=== PATIENT | female | born 1935 | race Two or more races ===

== ENCOUNTER 2022-05-16 03:19 | Emergency (ER) | payer MEDICARE, BC ==
[~2022-05-16] VITALS: Ht 157.5 cm; Wt 66.7 kg
--- NOTE | 2022-05-16 03:25 | NUR ---
BIBRA99 FOR TRACH DISLODGEMENT X20 MIN TESTING LEAD. ACCOMPANIED BY DAUGHTER. PATIENT PLACED IN BED COMFORTABLY, VITALS CHECKED.
--- NOTE | 2022-05-16 03:27 | NUR ---
RT & MD AT BEDSIDE
--- NOTE | 2022-05-16 03:27 | NUR ---
SUCTIONED SECRETIONS BY RT. TRACH CARE PERFORMED.
--- NOTE | 2022-05-16 03:50 | NUR ---
RT NOTE Pt rec'd trached Shiley 4 on Tmask 5LPM. Pt awake and alert. Trach is patent and secured. Trach care done and minimal bleeding noted. Pt sx'd for thick mod amt of thick yellow secretions. Ambu bag and emergency spare trach at bedside. Addendum: 05/16/22 at 0353 by YULIET ARROYO RT Amended: Links added.
--- NOTE | 2022-05-16 03:58 | NUR ---
XR AT BEDSIDE
--- NOTE | 2022-05-16 05:04 | NUR ---
[facility] CALLED FOR BLS GOING BACK TO [facility] PER COTY ETA 75 MIN
--- NOTE | 2022-05-16 06:46 | NUR ---
Patient discharged to home in stable condition accompanied by daughter via medical transportation. Written and verbal after care instructions given. Daughter verbalizes understanding of instruction.
[2022-05-16 06:50] VITALS: BP 132/94
== END 2022-05-16 06:51 | disposition home or self-care (01) ==
LOC: ER 03:28
DX: J95.09 Other tracheostomy complication (principal); Z98.890 Other specified postprocedural states
CPT/HCPCS: 31720; 71045-TC

== ENCOUNTER 2022-05-21 05:07 | Inpatient (IN) | payer MEDICARE, MEDICAID ==
[2022-05-21] VITALS (11 sets, daily range): BP systolic 103–150; BP diastolic 61–90
[~2022-05-21] VITALS: Ht 165.1 cm; Wt 64.4 kg
--- NOTE | 2022-05-21 05:20 | NUR ---
BIBRA99 FRM HOME FOR "ACCIDENTAL DISLODGEMENT OF TRACH". DAUGHTER AT BEDSIDE
--- NOTE | 2022-05-21 05:32 | NUR ---
RT AT PT'S BEDSIDE
--- NOTE | 2022-05-21 05:40 | NUR ---
RT ATTEMPTED TO INSERT TRACH IN STOMA; TRACH STOMA ALREADY CLOSED. PT SATTING 90% ON TRACH COLLAR. PT CONNECTED TO POX & MONITOR. SAFETY MEASURES IN PLACE.
--- NOTE | 2022-05-21 06:00 | NUR ---
RT NOTE Pt rec'd on NRB mask 15LPM, pt awake and alert. Trach decannulated at home and patient rushed to Emergency department per fire department. Fire department explained trach has been decannulated for 30 mins before arriving to Emergency department. Melissa snow sz 4 to be placed on pt per MD orders. Melissa snow sz 4 unable to pass through due to stoma closing. pt placed back on NRB mask 15LPM and able to tolerate NRB mask @ 15LPM. MD aware. Addendum: 05/21/22 at 0617 by YULIET ARROYO RT Amended: Links added.
--- NOTE | 2022-05-21 06:14 | NUR ---
DR PAO KIRBY AT PT'S BEDSIDE WITH FAMILY
--- NOTE | 2022-05-21 06:32 | NUR ---
SPOKE WITH [facility] FROM [facility]. HOSPITAL IS AT [facility]. HOWEVER, SHE IS GOING TO PUT PT ON WAIT LIST.
--- NOTE | 2022-05-21 06:43 | NUR ---
PREDATOR CONTROL TRAPPER AT PT'S BEDSIDE
--- NOTE | 2022-05-21 06:45 | NUR ---
COVID ANTIGEN COLLECTED SENT TO LAB
--- NOTE | 2022-05-21 06:56 | NUR ---
IV STARTED ON L WRIST 20G. BLOOD COLLECTED AND SENT TO LAB
--- NOTE | 2022-05-21 07:01 | NUR ---
TITRATED O2 TO 4L NC SATURATION 99%
[2022-05-21 07:10] LABS: BASOPHILS % (AUTO) 0.5 % (0.0-2.0); EOSINOPHILS % (AUTO) 2.8 % (0.0-6.0); HEMATOCRIT 35 % (33-45); HEMOGLOBIN 11.4 g/dL (11.5-14.8); LYMPHOCYTES # (AUTO) 1.4 K/uL (0.8-4.8); LYMPHOCYTES % (AUTO) 25.7 % (20.0-44.0); MEAN CORPUSCULAR HGB CONC 33 g/dl (31.0-36.0); MEAN CORPUSCULAR VOLUME 82 fL (82-100); MONOCYTES # (AUTO) 0.4 K/uL (0.1-1.30); MONOCYTES % (AUTO) 6.4 % (2.0-12.0); NEUTROPHILS # (AUTO) 3.6 K/uL (1.8-8.9); NEUTROPHILS % (AUTO) 64.6 % (43.0-81.0); PLATELET COUNT (AUTO) 193 K/uL (150-450); RED BLOOD CELL COUNT(AUTO) 4.27 MIL/uL (4.0-5.2); WHITE BLOOD COUNT (AUTO) 5.6 K/uL (4.3-11.0)
[2022-05-21 07:17] LABS: CALCIUM, SERUM 9.2 mg/dL (8.5-10.1); CARBON DIOXIDE 33 mmol/L (21-32); CHLORIDE 102 mmol/L (98-107); CREATININE 0.5 mg/dL (0.6-1.3); GLUCOSE 112 mg/dL (74-106); POTASSIUM 3.8 mmol/L (3.5-5.1); SODIUM SERUM 142 mmol/L (136-145); UREA NITROGEN, BLOOD 16 mg/dL (7-18)
--- NOTE | 2022-05-21 07:39 | NUR ---
Patient AOx4 able to express her concerns. Patient stable, reviewed plan of care, pt verbalized agreement. Will continue to monitor throughout shift and provide care as needed.
--- NOTE | 2022-05-21 08:00 | NUR ---
CALLED [phone] DR. SOLIS UNABLE TO LEAVE A VM
--- NOTE | 2022-05-21 08:58 | NUR ---
CALLED [phone] [facility]UNG FOR DR. SOLIS INSTRUCTED TO CALL HIS OFFICE AFTER 0900
--- NOTE | 2022-05-21 09:04 | NUR ---
CALLED [phone] DR. SOLIS GROUP HOME COUNSELOR. JAYJAY WILL TAKE FOR PEER TO PEER.
--- NOTE | 2022-05-21 09:31 | NUR ---
DR. SOLIS [phone] [place].
--- NOTE | 2022-05-21 09:37 | NUR ---
[facility] CALLED FIRMWARE MANAGER PAGED.
[2022-05-21] MEDS ORDERED: ONDANSETRON HCL/PF 4 MG/2 ML VIAL IVP PRN (10:00)
[2022-05-21] MEDS ORDERED: ALBUTEROL FS 2.5 MG/0.5 ML VIAL.NEB NEB PRN (10:00)
[2022-05-21] MEDS ORDERED: ACETAMINOPHEN 325 MG TABLET PO PRN (10:00)
[2022-05-21] MEDS ORDERED: MORPHINE SULFATE INJ 2 MG/ML DISP.SYRIN IV PRN (10:00)
--- NOTE | 2022-05-21 10:12 | NUR ---
CALLED [facility]: [phone] PER ANIL WILL CHECK WITH HOTEL OR MOTEL RECEPTIONIST DR. SOLIS AND CALL US BACK.
[2022-05-21 10:37] LABS: ABG BASE EXCESS 4.8 mmol/L; ABG PCO2 65.2 mmHg (35.0-45.0); ABG PH 7.318 (7.350-7.450); ABG PO2 161.4 mmHg (75.0-100.0); COHb 0.3 % (0.5-1.5); MetHb 0.4 % (0.0-1.5); O2Hb 98.1 % (94.0-97.0); SITE, ABG Right Radial; VENT MODE, BG 4L NC
[2022-05-21] MEDS ORDERED: ALBUTEROL FS 2.5 MG/0.5 ML VIAL.NEB NEB SCH (11:30)
[2022-05-21] MEDS ORDERED: IPRATROPIUM/ALBUTEROL INHALER IH SCH (12:00)
--- NOTE | 2022-05-21 13:03 | NUR ---
GOT BED 257 ADMITTING INFORMED.
--- NOTE | 2022-05-21 13:07 | NUR ---
Called [facility], states they have no nurse to take patient at the moment.
--- NOTE | 2022-05-21 13:14 | NUR ---
Report give to Katya TRAYLOR, patient cleared to go to Room 257.
--- NOTE | 2022-05-21 13:40 | NUR ---
Patient made aware of floor transfer, son in law at bedside, patient and son verbalized agreemnt.
--- NOTE | 2022-05-21 13:50 | NUR ---
ICU/RN PT ADMITED FROM ER.FROM HOME.PT HAD TRACHEOSTOMY.THIS MORNING TRACHEOSTOMY ACCIDENTLY DISLODGE.TRACHEOSTOMY SIDE CLOSE WITH DRESSING.SAT O2-96% ON 1L N/C .V/S STABLE,AFEBRILE.NO PAIN REPORTED AT THIS TIME.PT IS AWAKE ,ALERT.SKIN INTACT.PT HAS G-TUBE CLAMPED .PT EATS AND DRINK. LABS REVIEW.PT USE BEDPAN .AMBULATE AT HOME WITH WALKER. WAITING TO BE TRANSFER TO [facility]. NO BED AVAILABLE.FAMILY AT BED SIDE.ALL BELONGINGS SEND HOME.
[2022-05-21 14:53] LABS: ABG BASE EXCESS 5.8 mmol/L; ABG OXYGEN SATURATION 95.2 % (92.0-98.5); ABG PCO2 55.4 mmHg (35.0-45.0); ABG PH 7.382 (7.350-7.450); ABG PO2 77.4 mmHg (75.0-100.0); AaDO2 27.8 mmHg; COHb 0.3 % (0.5-1.5); MetHb 0.2 % (0.0-1.5); O2Hb 94.7 % (94.0-97.0); SITE, ABG Right Radial; VENT MODE, BG 1L NC
[2022-05-21] MEDS: methylPREDNISolone SOD SUCC 125 MG/2ML VIAL IV SCH (16:41)
--- NOTE | 2022-05-21 19:19 | NUR ---
RN NOTES PT LOOKS COMFORTABLE, ALL DUE MEDICATIONS GIVEN. VITAL SIGNS STABLE. REPORT GIVEN TO PRINCESS TRAYLOR FOR CONTINUATION OF CARE.
[2022-05-21] MEDS: IPRATROPIUM NEB FS 0.5 MG/2.5 ML AMPUL.NEB NEB SCH (20:12)
[2022-05-21] MEDS: HEPARIN SODIUM, PORCINE 5000 UNITS/1 ML VIAL SQ SCH (21:47)
--- NOTE | 2022-05-21 22:13 | NUR ---
MANAGER LIFE INSURANCE OPENING NOTE PT RECEIVED IN BED, AWAKE, SPEAKS FARSI WITH DAUGHTER AT BEDSIDE. PER DAUGHTER REPORT, PT IS CONFUSED TO WHERE SHE IS AT BUT OTHERWISE A/0 X3, CALM, COOPERATIVE. PT ON 1L NC WITH O2SAT OF 95%; NO S/S OF RESP DISTRESS; NO SOB OR COUGH, NON-LABORED AND EQUAL BREATHING; TRACH SITE NOTED TO BE COVERED WITH GAUZE, NO DRAINAGE NOTED. GT CLAMPED. IV ACCESS ON LEFT AND RIGHT HAND 20G INTACT AND PATENT, FLUSHES EASILY WITH NO RESISTANCE; NO MEDS/FLUIDS INFUSING THROUGH. BED IN LOWEST POSITION, CALL LIGHT WITHIN REACH, SIDE RAILS UP X2. WILL CONTINUE TO MONITOR THROUGHOUT THE NIGHT.
--- NOTE | 2022-05-21 22:18 | NUR ---
[place] (PT'S DAUGHTER)
--- NOTE | 2022-05-21 23:31 | NUR ---
RN NOTE SPOKE WITH [facility] TRANSFER [facility]. INFORMED [facility] REP. THAT PLAN FOR PT IS TO BE TRANSFERRED TO [facility], BUT NO AVAILABLE BED. PER REP., CAIO AKBAR MD PLANS TO HAVE PT STAY FOR 2 DAYS STARTING TOMORROW AM 4/6 AND ASSESS FROM THERE ON IF TRANSFER IS STILL NECESSARY. PROVIDED REP WITH PT'S MOST RECENT VITAL SIGNS. WILL HAVE PRE SALES NETWORK ENGINEER FOLLOW UP IN AM.
[2022-05-22] VITALS (18 sets, daily range): BP systolic 87–133; BP diastolic 49–92
[2022-05-22] MEDS: IPRATROPIUM NEB FS 0.5 MG/2.5 ML AMPUL.NEB NEB SCH ×4 (01:16→20:33)
--- NOTE | 2022-05-22 02:48 | NUR ---
RN NOTE PT REFUSED AM LABS.
--- NOTE | 2022-05-22 03:38 | NUR ---
PT REQUESTED TO BE TAKEN OFF BIPAP. PLACED ON 2L NC O2 SAT 96%.
--- NOTE | 2022-05-22 06:30 | NUR ---
CLERICAL PRODUCTION WORKER CLOSING NOTE PT REMAINS IN BED, AWAKE, A/O X2-3, FARSI-SPEAKING. TAKEN OFF OF BIPAP AT 0330, NOW BACK TO 2L NC WITH O2SAT RANGING FROM 93%-98%; NO S/S OF RESP DISTRESS, NO ADVENTITIOUS BREATH SOUNDS, NON-LABORED AND EQUAL BREATHING. ATTACHED TO BEDSIDE MONITOR, SR WITH HR RANGING FROM 62-95. IV ACCESS ON LFA AND LEFT HAND 20G INTACT AND PATENT, FLUSHES EASILY WITH NO RESISTANCE; NO MEDS/FLUIDS INFUSING THROUGH. ALL DUE MEDS ADMINISTERED DURING THE NIGHT. BED IN LOWEST POSITION, CALL LIGHT WITHIN REACH, SIDE RAILS UP X2. WILL ENDORSE TO DAYSHIFT NURSE TO CONTINUE CARE.
[2022-05-22] MEDS: HEPARIN SODIUM, PORCINE 5000 UNITS/1 ML VIAL SQ SCH ×2 (08:48→21:04)
[2022-05-22] MEDS: methylPREDNISolone SOD SUCC 125 MG/2ML VIAL IV SCH ×2 (08:48→17:09)
[2022-05-22] MEDS ORDERED: METO25TA20 PO (08:58)
[2022-05-22] MEDS ORDERED: QUET25TA PO (08:58)
[2022-05-22] MEDS ORDERED: ALBU2.5V38 NEB (08:58)
[2022-05-22] MEDS ORDERED: IPRA3AMP23 NEB (08:58)
[2022-05-22] MEDS ORDERED: ALBUTEROL FS 2.5 MG/0.5 ML VIAL.NEB NEB SCH (09:24)
--- NOTE | 2022-05-22 09:45 | NUR ---
RN NOTES NOTIFIED DR. RICKS THAT PT'S BP HAS BEEN TRENDING ON THE LOW SIDE OFF AND ON. RECEIVED VERBAL ORDER FROM THE DOCTOR TO PLACE ORDER FOR MIDODRINE PO 10MG Q8H PRN FOR SBP LESS THAN 90.
[2022-05-22] MEDS ORDERED: MIDODRINE HCL (5MG) 5 MG TABLET PO PRN (10:00)
[2022-05-22] MEDS: QUETIAPINE FUMARATE 25 MG TABLET PO SCH ×2 (13:12→17:09)
[2022-05-22] MEDS: ALBUTEROL FS 2.5 MG/0.5 ML VIAL.NEB NEB SCH ×2 (13:30→20:33)
--- NOTE | 2022-05-22 15:24 | NUR ---
RN NOTES PT BEING DOWNGRADED TO TELE. PT IS STABLE, VITALS STABLE, ALL DUE MEDICATIONS GIVEN AT THIS CURRENT TIME. CURRENTLY ON 2L NC; TOLERATING WELL. CO2 LEVELS TRENDING DOWN.
--- NOTE | 2022-05-22 15:52 | NUR ---
rn note received report from Eric OLIVAREZ RN for contuity of care
--- NOTE | 2022-05-22 15:56 | NUR ---
RN CLOSING NOTES PT STABLE, VITALS STABLE, ALL DUE MEDICATIONS GIVEN AT THIS TIME. PT GOING TO TELE 107. REPORT GIVEN TO DESHAWN TRAYLOR FOR CONTINUATION OF CARE.
--- NOTE | 2022-05-22 16:42 | NUR ---
rn note gave report to Xiomara TRAYLOR for contuity of care
--- NOTE | 2022-05-22 16:45 | NUR ---
RN NOTE RECEIVED PATIENT IN BED RESTING,ALERT ORIENTED X2-3 HUNGARIAN SPEAKING,UNDERSTAND LITTLE FARSI,ON 2L OXYGEN VIA NASAL CANNULA,O2:94%,IV SITE IS ON LEFT FOREARM AND LEFT HAND INTACT PATENT,SAFETY MEASURE IMPLEMENT BED IN LOW POSITION AND LOCKED,BED ALARM IS ON,HEAD OF THE BED ELEVATED,CONTINUE TO MONITOR.
[2022-05-22] MEDS: METOPROLOL TARTRATE 25 MG TABLET PO SCH (17:09)
--- NOTE | 2022-05-22 18:54 | NUR ---
RN NOTE PATIENT REMAINS ON STABLE CONDITION,PM MEDS GIVEN NO SOB NOT ACUTE DISTRESS NOTED ON 2L OXYGEN VIA NASAL CANNULA,O2:94%,HER DAUGHTER IN BED SIDE,WILL ENDORSE NEXT COMING SHIFT FOR CONTINUATION OF CARE.
--- NOTE | 2022-05-22 19:30 | NUR ---
RN NOTE RECEIVED PT IN BED, ALERT, AWAKE AND VERBALLY RESPONSIVE. PT ABLE TO UNDERSTAND SIMPLE CZECH. DENIES PAIN OR DISCOMFORT AT THIS TIME. S/P TRACH STOMA COVERED WITH DD, CLEAN, NO S/SX OF BLEEDING OR INFX. PT ON 2L O2 VIA NC, WELL WILMER. NO SOB/NO ACUTE RESP DISTRESS NOTED, O2 SAT- 92%. PIV ACCESS ON LFA AND L HAND #20G, CLEAN AND DRY, PATENT. PT NOTED WITH GTF ON CLAMPED. HOB ELEVATED. SAFETY PRECAUTIONS IMPLEMENTED. DAUGHTER AT BEDSIDE. WILL CONT POC.
--- NOTE | 2022-05-22 21:30 | NUR ---
RN NOTE RECEIVED CALL FROM ERIKA (RN) FROM [facility] REGARDING PT'S CURRENT TRANSFER STATUS. WILL ENDORSE TO AM SHIFT. PHONE NUMBER: [phone] EXT. [phone]
--- NOTE | 2022-05-22 23:42 | NUR ---
PLACED PT ON NOC BIPAP 15/5, RATE 14, FIO2 35%. SPO2 95%, NO RESPIRATORY DISTRESS NOTED AT THIS TIME. WILL CONTINUE TO MONITOR T/O SHIFT.
[2022-05-23] VITALS: BP 111/72
[2022-05-23] MEDS: IPRATROPIUM NEB FS 0.5 MG/2.5 ML AMPUL.NEB NEB SCH ×3 (01:34→13:05)
[2022-05-23] MEDS: ALBUTEROL FS 2.5 MG/0.5 ML VIAL.NEB NEB SCH ×3 (01:34→13:05)
[2022-05-23 04:00] VITALS: BP 116/65
--- NOTE | 2022-05-23 05:49 | NUR ---
TAKEN OFF BIPAP AT THIS TIME AND PLACED PT ON 2L NC. SPO2 94%, NO RESPIRATORY DISTRESS NOTED.
--- NOTE | 2022-05-23 06:14 | NUR ---
RN NOTE PT REMAINS IN STABLE CONDITION. NO SIGNIFICANT CHANGES NOTED. NOC BIPAP ORDERED, WELL TOLERATED. PT NOW BACK ON 2L O2 VIA NC, NO RESP DISTRESS NOTED, O2 SAT-94%. HOB ELEVATED FOR COMFORT. TURN/REPOS Q2H/PRN. ALL NEEDS ATTENDED. WILL ENDORSE TO AM SHIFT FOR VERONICA.
--- NOTE | 2022-05-23 07:15 | NUR ---
RN open NOTE RECEIVED PT IN BED, ALERT, AWAKE AND VERBALLY RESPONSIVE. PT ABLE TO UNDERSTAND SIMPLE KINYARWANDA. DENIES PAIN OR DISCOMFORT AT THIS TIME. S/P TRACH STOMA COVERED WITH DD, CLEAN, NO S/SX OF BLEEDING OR INFX. PT ON 2L O2 VIA NC, WELL WILMER. NO SOB/NO ACUTE RESP DISTRESS NOTED, O2 SAT- 92%. PIV ACCESS ON LFA AND L HAND #20G, CLEAN AND DRY, PATENT. PT NOTED WITH GTF ON CLAMPED. PATIENT IS ABLE TO EAST SOFT MECHANICAL FOOD HOB ELEVATED. SAFETY PRECAUTIONS IMPLEMENTED. CALL LIGHT WITHIN REACH WULL CONTINUE TO MONITOR
[2022-05-23 08:00] VITALS: BP 147/96
[2022-05-23] MEDS: QUETIAPINE FUMARATE 25 MG TABLET PO SCH ×3 (09:05→16:29)
[2022-05-23] MEDS: methylPREDNISolone SOD SUCC 125 MG/2ML VIAL IV SCH ×2 (09:05→16:29)
[2022-05-23] MEDS: METOPROLOL TARTRATE 25 MG TABLET PO SCH ×2 (09:06→16:29)
[2022-05-23] MEDS: HEPARIN SODIUM, PORCINE 5000 UNITS/1 ML VIAL SQ SCH (09:08)
[2022-05-23 10:07] LABS: ABG PCO2 46.1 mmHg (35.0-45.0); ABG PH 7.419 (7.350-7.450); ABG PO2 82.2 mmHg (75.0-100.0); COHb 0.3 % (0.5-1.5); O2Hb 95.7 % (94.0-97.0); SITE, ABG Right Radial; VENT MODE, BG NASAL CANNULA
--- NOTE | 2022-05-23 10:10 | NUR ---
RT NOTE: PATIENT FOUND ON OXYGEN RUNNING ON 3 LPM VIA NASAL CANNULA. ABG DONE AND REPORTED TO . OXYGEN LOWERED TO 2LPM VIA NASAL CANNULA PER .
[2022-05-23 12:04] VITALS: BP 140/60
[2022-05-23 16:00] VITALS: BP 112/71
[2022-05-23 16:29] VITALS: BP 112/71
--- NOTE | 2022-05-23 18:44 | NUR ---
RN NOTE PATIENT IS AT STABLE HEA;TH CONDITION , DISCHARGE ORDER RECEIVED .BIPAP MACHINE ORDERED TO THE PATIENT'S HOUSE WILL BE DELIVERED BY 7 PM , CONFIRMED WITH DAUGHTER. DISCHARGE INSTRUCTIONS PROVIDED VERBALLY AND IN WRITTEN TO THE EMT TEAM . PATIENT DIISCHARGED FROM [facility] .
== END 2022-05-23 18:32 | disposition home health service (06) | DRG 143 ==
LOC: ER 05:09 → ICU 13:36 → TELE-TD 05-22 15:35
PROVIDERS: ADMIT Internal Medicine; ATTEND Internal Medicine
PROC: 5A09457 Assistance with Respiratory Ventilation, 24-96 Consecutive Hours, Continuous Positive Airway Pressure (ICD-10-PCS; principal; 2022-05-22)
DX: J95.03 Malfunction of tracheostomy stoma (principal); J96.10 Chronic respiratory failure, unspecified whether with hypoxia or hypercapnia; J39.8 Other specified diseases of upper respiratory tract; R13.10 Dysphagia, unspecified; Y84.8 Other medical procedures as the cause of abnormal reaction of the patient, or of later complication, without mention of misadventure at the time of the procedure; Y92.009 Unspecified place in unspecified non-institutional (private) residence as the place of occurrence of the external cause; Z20.822 Contact with and (suspected) exposure to COVID-19; Z87.09 Personal history of other diseases of the respiratory system; J98.6 Disorders of diaphragm; Z79.51 Long term (current) use of inhaled steroids
CPT/HCPCS: 36415; 36600; 71045-TC; 80048-TC; 82803-TC; 85025-TC; 85730-TC; 87081-TC; 92526; 92611-TC; 94799-TC; C9803; G0378; J1644; J2930